=== PATIENT | female | born 1935 | race Caucasian/White ===

== ENCOUNTER 2016-04-16 11:52 | Day surgery (SDC) | payer BC ==
[~2016-04-16 11:52] MED LIST: CALCTAB98 PO; GLUC250C5 PO; MULT-65 PO; VITA400D PO
[2016-04-16 12:08] VITALS: BP 180/119; PULSE 78; RESP 20; TEMP 97.4; O2SAT 97
[2016-04-16] MEDS ORDERED: OMEP20TA PO (12:23)
[2016-04-16] MEDS ORDERED: FIBE625T PO (12:24)
--- NOTE | 2016-04-16 13:07 | PD.RAD ---
Post Procedure Progress Note Pre Procedure Diagnosis: (1) Colon cancer Post Procedure Diagnosis: (1) Colon cancer Procedure Date: Apr 16, 2016 Supervising Radiologist: Gildardo Yanez Plan of Activity Patient to Unit: [facility] Patient Condition: Good See PACS Report for procedural detail/treatment Central Venous Access Device Procedure 1 Right Internal Jugular Infusaport Evaluation single lumen Findings: Port position has migrated since placement. Catheter tip is above clavicle and maybe out of vein. Additional Detail: Patient scheduled for removal and replacement. Gildardo Yanez MD Apr 16, 2016 13:07
--- NOTE | 2016-04-16 15:23 | RADRPT ---
EXAM DATE/TIME: 04/16/2016 12:32 [facility] COMPARISON: No previous studies available for comparison. INDICATIONS : Patient with hx of adenocarcioma of the colon. MEDICAL HISTORY : 1. Colon cancer 2. Uterine tumor 3. Hodgkin lymphoma 4. Osteoaarthritis 5. Gout SURGICAL HISTORY : 1. Laparotomy with hemicolectomy 2. Mesenteric lymphadenectomy 3. Hysterectomy 4. Right infusaport ENCOUNTER: Initial ACUITY: 7-11 months PAIN SCORE: 0/10 FLUORO TIME: 0.1 minutes PROCEDURE : 1. fluoroscopic evaluation of a right Mlcuqi-f-Dmqo 2. Conscious sedation with continuous EKG and Oximetry monitoring. A right Sliiam-m-Tbqz was evaluated fluoroscopically. Tip of the distal catheter has retracted above the clavicle. The port itself has migrated inferiorly compared to the prior post placement radiograph . Port cannot be clearly access for patency evaluation. CONCLUSION: Suspected extravascular retraction of Druqbj-a-Nghc. Patient has been scheduled for removal and replacement. Gildardo Yanez MD on April 16, 2016 at 15:19 Board Certified Radiologist. This report was verified electronically.
== END 2016-04-16 13:20 | disposition home or self-care (01) ==
LOC: HRIP 11:52 → HROP 11:52
PROVIDERS: ATTEND Internal Medicine Hematology & Oncology
DX: Z45.2 Encounter for adjustment and management of vascular access device (principal); C18.9 Malignant neoplasm of colon, unspecified

== ENCOUNTER 2016-04-17 08:48 | Day surgery (SDC) | payer BC ==
[~2016-04-17] VITALS: Ht 170.2 cm; Wt 68.2 kg
[~2016-04-17 08:48] MED LIST changes: -CALCTAB98 PO; +FIBE625T PO; -GLUC250C5 PO; -MULT-65 PO; +OMEP20TA PO; -VITA400D PO
[2016-04-17 09:07] VITALS: BP 185/94; PULSE 78; RESP 20; TEMP 97.7; O2SAT 95
[2016-04-17] MEDS ORDERED: ceFAZolin 2 GM PREMIX 50 ML - implanted port/tunneled catheter insertion IV SCH (09:15)
[2016-04-17] MEDS ORDERED: POVIDONE IODINE 5% (ANTISEPSIS KIT) 4 APPLICATIONS EACH NARE SCH (09:15)
[2016-04-17] MEDS ORDERED: VANCOMYCIN 1000 MG/NS 250 ML - implanted port/tunneled catheter IV SCH ×2 (09:15)
[2016-04-17] MEDS ORDERED: SODIUM CHLORIDE 0.9% 1000 ML IV SCH (09:15)
[2016-04-17] MEDS ORDERED: CHLORHEXIDINE GLUCONATE 2 % 1 PACK (2 CLOTHS) TOPICAL SCH (09:15)
[2016-04-17] MEDS ORDERED: fentaNYL CITRATE 250 MCG/5 ML AMP ONE (10:33)
[2016-04-17] MEDS ORDERED: MIDAZOLAM HCL 5 MG/5 ML VIAL ONE (10:33)
[2016-04-17 10:35] LABS: APTT (PATIENT) 26.1 SEC (24.3-30.1); PROTHROMBIN TIME - PATIENT 11.2 SEC (9.8-11.6)
[2016-04-17] MEDS ORDERED: LIDOCAINE 1%/EPINEPHrine 1:100,000 SOLN 30 ML VIAL ONE (10:50)
--- NOTE | 2016-04-17 12:04 | PD.RAD ---
Post Procedure Progress Note Pre Procedure Diagnosis: (1) Colon cancer Post Procedure Diagnosis: (1) Colon cancer Procedure Date: Apr 17, 2016 Supervising Radiologist: Gildardo Yanez Proceduralist/Assist: Lisa Glez, RT(R), Lizbet Wang RT(R) Anesthesia: Local, Conscious Sedation Plan of Activity Patient to Unit: R[facility]U Patient Condition: Good See PACS Report for procedural detail/treatment Central Venous Access Device Procedure 1 Left Infusaport Placement single lumen [place]: 8 Procedure 2 Right Internal Jugular Infusaport Removal single lumen Gildardo Yanez MD Apr 17, 2016 12:04
[2016-04-17] MEDS ORDERED: ONDANSETRON HCL 4 MG/2 ML VIAL ONE (12:11)
[2016-04-17 12:20] VITALS: BP 167/78; PULSE 74; RESP 20; TEMP 97.6; O2SAT 97
[2016-04-17 12:35] VITALS: BP 180/91; PULSE 68; RESP 20; O2SAT 93
--- NOTE | 2016-04-17 13:14 | RADRPT ---
EXAM DATE/TIME: 04/17/2016 09:24 [facility] COMPARISON: No previous studies available for comparison. INDICATIONS : Patient with nonfuctioning right port. MEDICAL HISTORY : 1. Colon cancer 2. Uterus cancer 3. Oseoarthritis 4.Gout SURGICAL HISTORY : 1. Left port placement 2. Right port removal 3. Laparo;matthew with hemicolectomy 4. Mesenteric lymphadenectomy 5. Hysterectomy ENCOUNTER: Subsequent ACUITY: 7-11 months PAIN SCORE: 0/10 SEDATION TIME: 50 minutes 1.) 3 mg midazolam (Versed) IV 2.) 175 mcg fentanyl (Sublimaze) IV Prophylactic antibiotics were administered with appropriate pre-procedure timing. Vancomycin within 2 hrs of procedure, Ancef (or alternative) within 1 hr of procedure. PROCEDURE : 1. Removal of Zrwpxp-h-toff. 2. Conscious sedation with continuous EKG and oximetry monitoring. The risk, benefits and potential complications of Ecxzyi-f-Nntn removal were discussed. Written conse nt was obtained. The patient was placed supine. The chest wall was prepped in sterile fashion. Full sterile techniqu e was used, including cap, mask, sterile gloves and gown, and a large sterile sheet. Hand hygiene an d 2% chlorhexidine and/or Betadine/alcohol prep was utilized per protocol for cutaneous antisepsis. The skin and subcutaneous tissues were infiltrated with local anesthetic solution. A small incision w as made, the subcutaneous pocket was opened. The port was dissected from the subcutaneous tissues and easily removed in one piece. The pocket incision was closed with subcuticular Vicryl suture. Steri -Strips were applied. Conscious sedation was performed with the prescribed dosages and duration as above. The patient tole rated the procedure well and there were no complications. EKG and oximetry remained stable throughou t the procedure. The patient was sent to post anesthesia recovery in stable condition. CONCLUSION: Uncomplicated port removal as above. Gildardo Yanez MD on April 17, 2016 at 13:10 Board Certified Radiologist. This report was verified electronically.
--- NOTE | 2016-04-17 13:15 | RADRPT ---
EXAM DATE/TIME: 04/17/2016 10:47 [facility] COMPARISON: No previous studies available for comparison. INDICATIONS : Patient with non functioning right port.Remove and replace port. MEDICAL HISTORY : 1. Colon cancer 2. Uterus tumor 3. Osteoarthritis 4. Gout SURGICAL HISTORY : 1. Laparotomy with hemicolectomy 2. Mesenteric lymphadectomy 3. right and left port placement 4. Hysterectomy ENCOUNTER: Subsequent ACUITY: 7-11 months PAIN SCORE: 0/10 FLUORO TIME: 1.3 minutes SEDATION TIME: 50 minutes ACCESS: Left internal jugular vein SEDATION: 1.) 3 mg midazolam (Versed) IV 2.) 175 mcg fentanyl (Sublimaze) IV Prophylactic antibiotics were administered with appropriate pre-procedure timing. Vancomycin within 2 hours of procedure, Ancef (or alternative) within 1 hour of procedure. DEVICE: 1. 8 [place] single lumen Bard Power Port PROCEDURE : 1. Continuous pulse oximetry and EKG monitoring. 2. Intravenous conscious sedation. 3. Ultrasound guidance for venous access. 4. Fluoroscopic guided implantable central venous port placement. The patient was placed supine. The neck was prepped in sterile fashion. Full sterile technique was u sed, including cap, mask, sterile gloves and gown, and a large sterile sheet. Hand hygiene and 2% ch lorhexidine Betadine was utilized per protocol for cutaneous antisepsis with appropriate dry time for site. The skin and subcutaneous tissues were infiltrated with local anesthetic solution. Under direct ultrasound guidance, central venous access was accomplished in the targeted vessel. The ultrasound images depicting access guidance were stored and saved to PACS for permanent record. A s ubcutaneous pocket was created using blunt dissection. The port was introduced to the pocket. The c atheter tubing was fed through a subcutaneous tunnel to the venotomy site. The catheter tubing was c ut to a suitable length and then was introduced through a valved Peel-Away sheath and positioned with catheter tubing tip at the cavo-atrial junction level. The pocket incision was closed with subcutic ular Vicryl suture. Steri-Strips were applied. The port was flushed and locked with heparin solutio n per protocol. Sterile dressing was applied to the site. The patient tolerated the procedure well. Conscious sedation was performed with the prescribed dosages and duration as above. The patient nestor ated the procedure well and there were no complications. EKG and oximetry remained stable throughout the procedure. The patient was sent to post anesthesia recovery in stable condition. CONCLUSION: Uncomplicated ultrasound and fluoroscopic guided implanted central venous port catheter placement as described in detail above. An 8 [place] Power port was placed. Gildardo Yanez MD on April 17, 2016 at 13:13 Board Certified Radiologist. This report was verified electronically.
[2016-04-17 14:00] VITALS: BP 179/87; PULSE 81; RESP 20; O2SAT 95
== END 2016-04-17 14:35 | disposition home or self-care (01) ==
LOC: HROP 08:48 → HRIP 08:49 → HROP 14:35
PROVIDERS: ATTEND Internal Medicine Hematology & Oncology
DX: Z45.2 Encounter for adjustment and management of vascular access device (principal); C18.9 Malignant neoplasm of colon, unspecified; I10 Essential (primary) hypertension; M10.9 Gout, unspecified; E11.9 Type 2 diabetes mellitus without complications; Z85.42 Personal history of malignant neoplasm of other parts of uterus
CPT/HCPCS: 36561; 36590; 76937; 77001; 85610; 85730; 99152; 99153; C1788; J0690; J1642; J2250; J2405; J3010; J3370; J7030; J7050